=== PATIENT | female | born 1990 | race Caucasian/White ===

== ENCOUNTER 2016-11-09 19:13 | Emergency (ER) ==
[2016-11-09 19:34] LABS: MANUAL DIFF NEEDED? NO
[2016-11-09 19:36] LABS: BASO% 0.3 % (0.0-0.8); EOS# 0.37 X1000 (0.0-0.7); EOS% 3.3 % (0.0-10.0); HEMATOCRIT 37.2 % (37.0-47.0); IMM GRAN# 0.02 X1000 (0.0-0.04); IMM GRAN% 0.2 % (0.0-0.5); LYMPH# 3.41 X1000 (1.2-3.4); LYMPH% 30.1 % (20.5-51.1); MCH 24.6 PG (27-31); MCHC 32.3 g/dL (33-37); MCV 76.2 FL (81-99); MONO# 0.52 X1000 (0.11-0.59); MONO% 4.6 % (1.7-9.3); MPV 9.8 FL (7.4-10.4); NEUT% 61.5 % (42.2-75.2); PLT 449 X1000 (130-400); RBC 4.88 XMIL (4.2-5.4)
[2016-11-09 19:51] LABS: URINE CULTURE NEEDED? NO; URINE MICRO REVIEW NEEDED? NO; URINE SOURCE CLEAN CATCH
[2016-11-09 20:00] LABS: AGAP 14; ALBUMIN 3.9 g/dL (3.5-5.0); ALKALINE PHOSPHATASE 68 U/L (32-104); AMYLASE 36 U/L (20-200); BUN 10 mg/dL (8-22); CALCIUM 8.8 mg/dL (8.8-10.2); CHLORIDE 103 mmol/L (98-107); COSMO 274; GOT 12 U/L (10-30); GPT 14 U/L (10-36); LIPASE 29 U/L (13-60); SODIUM 138 mmol/L (136-145); TCO2 21 mmol/L (25-35); TOTAL BILIRUBIN < 0.10 mg/dL (0.20-1.00); TOTAL PROTEIN 7.1 g/dL (6.3-8.3)
[2016-11-09 20:11] LABS: BILIRUBIN URINE NEGATIVE (NEGATIVE); BLOOD URINE MODERATE (NEGATIVE); COLOR YELLOW; GLUCOSE URINE NEGATIVE (NEGATIVE); LEUKOCYTES URINE NEGATIVE (NEGATIVE); NITRITE URINE NEGATIVE (NEGATIVE); PROTEIN URINE NEGATIVE (NEGATIVE); TURBIDITY URINE CLEAR (CLEAR); UROBILINOGEN URINE NORMAL (NORMAL)
[2016-11-09 20:12] LABS: UR EPITHELIAL CELLS <10 /HPF (<10); URINE BACTERIA 1+ /HPF; URINE WBC <10 /HPF (<10)
[2016-11-09] MEDS ORDERED: ZOFRAN IV ONE (21:49)
[2016-11-09] MEDS ORDERED: MORPHINE IV ONE ×2 (21:49→22:57)
[2016-11-09] MEDS ORDERED: NS 1,000 ML IV ONE (21:49)
--- NOTE | 2016-11-09 21:50 | PROVIDER DOCUMENTATION ---
HPI-Abdominal Pain/GI Problem - General Chief Complaint: Abdominal Pain Stated Complaint: RT ABD PAIN, N/V/D Time Seen by Provider: 11/09/16 21:02 Source: patient Allergies/Adverse Reactions: Patient Allergies Allergy/AdvReac Type Severity Reaction Status Date / Time No Known Allergies Allergy Verified 11/09/16 21:40 Home Medications: Home Medication List Medication Instructions Recorded Confirmed Last Taken Type Levothyroxine [Synthroid] 25 microgm PO DAILY 12/24/15 11/09/16 11/09/16 08:00 History Noreth A-Et Estra/Fe Fumarate 1 each PO DAILY 12/24/15 11/09/16 11/09/16 08:00 History [Microgestin Fe 1-20 Tablet] Sertraline HCl [Zoloft] 100 mg PO DAILY 12/24/15 11/09/16 11/09/16 07:30 History Omeprazole [Prilosec] 40 mg PO DAILY 11/09/16 11/09/16 11/09/16 08:00 History Hydrocodone/APAP 7.5 mg/325 mg 1 each PO Q6H PRN PRN #10 tablet 11/10/16 Unknown Rx [Irene-7.5] Omeprazole [Prilosec] 20 mg PO DAILY@0700 #20 capsule 11/10/16 Unknown Rx Promethazine [Phenergan] 25 mg PO Q6H PRN PRN #20 tablet 11/10/16 Unknown Rx - History of Present Illness-ABD Nature of Presenting Problems: Pt is a 26 y/o F c chief complaint of epigastric pain, RUQ pain, and R scapula pain that was made worse when she ate a meal today. Pt has a h/o pancreatic duct stenosis and is being treated by a GI specialist in [place]. On arrival , pt is in minimal distress, afebrile. She denies dysuria or changes in bowel. Review of Systems - Adult - REVIEW OF SYSTEMS - ADULT Constitutional: reports: no symptoms reported. denies: chills, fatique Eyes: reports: no symptoms reported. denies: blurred vision, double vision Ears, Nose, Mouth & Throat: reports: no symptoms reported. denies: ear pain, nose pain Cardiovascular: reports: no symptoms reported. denies: chest pain, orthopnea Respiratory: reports: no symptoms reported. denies: cough, shortness of breath Gastrointestinal: reports: abdominal pain, nausea, vomiting Genitourinary: reports: no symptoms reported. denies: dysuria, flank pain Musculoskeletal: reports: no symptoms reported. denies: joint pain, joint swelling Integumentary: reports: no symptoms reported. denies: hives, itching, rash Neurological: reports: no symptoms reported. denies: numbness, paresthesia Psychiatric: reports: no symptoms reported. denies: anxiety, emotional problems Endocrine: reports: no symptoms reported. denies: cold intolerance, heat intolerance Hematologic/Lymphatic: reports: no symptoms reported. denies: blood clots, low blood count Allergic/Immunologic: reports: no symptoms reported. denies: allergic reactions , food allergy All Other Systems: Reviewed and Negative Past History - Adult - PAST MEDICAL HISTORY-ADULT Review of Records: reports: Old Records Reviewed, Nursing Assessment Review, Medications Reviewed, Social history reviewed & non-contributory. Major Childhood Illnesses: reports: denies history Cardiovascular: reports: denies history Respiratory: reports: denies history Gastrointestinal: reports: liver disease, pancreatitis Obstetrical/Gynecological: reports: denies history Genitourinary: reports: denies history Musculoskeletal: reports: denies history Neurological: reports: denies history Endocrine/Immune: reports: denies history Other Conditions: reports: denies history - PRIOR SURGERIES/PROCEDURES Surgical/Procedure History: reports: none - IMMUNIZATION STATUS Childhood Immunizations: See Nurse Assessment Flu Vaccine: See Nurse Assessment - FAMILY HISTORY Family History: reviewed, not pertinent - SOCIAL HISTORY Smoking: denies Substance Use: none/never Alcohol Use Frequency: never Living Situation: family Physical Exam-General - PHYSICAL EXAM-ADULT Initial Vital Signs Reviewed: Yes - CONSTITUTIONAL General Appearance: appears well, alert, no apparent distress - EYES Eyes: PERRL/EOMI, pink conjunctivae - HEAD, EARS, NOSE, MOUTH & THROAT HENMT: normocephalic/atraumatic, moist mucous membranes, normal ENT inspection - NECK Neck: non-tender - RESPIRATORY Respiratory: chest non-tender, lungs clear, normal breath sounds - CARDIOVASCULAR Cardiovascular: normal peripheral pulses, regular rate, rhythm, no edema - CHEST (BREASTS) Chest/Breast: deferred - GASTROINTESTINAL (ABDOMEN) Abdominal Exam: guarding, tenderness (RUQ), Handley's sign - LYMPHATIC Lymphatic: no adenopathy - MUSCULOSKELETAL Back Exam: normal inspection, no CVA tenderness, no vertebral tenderness Extremity: normal range of motion, non-tender, normal gait - SKIN Integumentary: normal color, normal turgor, warm/dry - NEUROLOGIC Neurologic: grossly normal, no motor/sensory deficits - PSYCHIATRIC Psych/Mental Status: normal mood/affect, normal thought content, normal thought process, oriented x 3 Progress - CT/MRI 1 CT Study: Abdomen, Pelvis Impression: Normal (Splenomegaly, normal GB appearance by CT, R colic distribution reactive lymph nodes of uncertain significance/etiology. follow up as clinically indicated. Tiny L and very small R pleural effusions. - prelim radiology report) Departure - Departure Time of Disposition Order: 01:11 DIAGNOSIS: Biliary colic Abdominal pain Qualifiers: Abdominal location: right upper quadrant Qualified Code(s): R10.11 - Right upper quadrant pain Disposition: HOME 01 Certified Medical Emergency: Emergent Condition: Stable Additional Instructions: FOLLOW UP WITH YOUR GI SPECIALIST IN [place]. FOLLOW UP WITH DR. ALY SMITH ( GENERAL SURGERY). ED Follow Up Instructions: You have been treated by a care provider in the Emergency Department. These instructions are being provided to you so you can have an understanding of how to care for yourself upon discharge. Upon discharge from the Emergency Department, you are responsible for making arrangements for follow-up care by a physician of your choice. Take all prescribed medications as directed. Return to the Emergency Department immediately for any new or worsening symptoms. You may call the Physician Referral phone number at [phone] to obtain a list of Physicians who are taking new patients. Prescriptions: Hydrocodone/APAP 7.5 mg/325 mg [Irene-7.5] 1 each PO Q6H PRN PRN #10 tablet PRN Reason: Pain Promethazine [Phenergan] 25 mg PO Q6H PRN PRN #20 tablet PRN Reason: Nausea Omeprazole [Prilosec] 20 mg PO DAILY@0700 #20 capsule Referrals: None,PCP [Primary Care Provider] - Attestation - Physician/ ASHLEE Attestation Patient care was provided by Advanced Practice Provider:: Yes Advanced Practice Provider:: Gio Haywood Advanced Practice Provider documentation review:: The Mid-level provider documentation, treatment plan and medical decision making was reviewed by the physician who agrees with all treatment and medical decision making by the [facility]. Physician Attestation - Physician Attestation I, the provider, attest to the following statement:: Gio Haywood Physician documentation Attestation:: This documentation recorded by the scribe accurately reflects the service I personally performed and the decisions made by me.
[2016-11-10 01:41] VITALS: BP 133/82
--- NOTE | 2016-11-10 09:37 | Diag Imaging Result Document ---
PROCEDURE NAME: CT ABD/PELVIS W/ IV CONT ONLY - 11/09/2016 CT ABDOMEN AND PELVIS WITH IV CONTRAST: COMPARISON: None available. FINDINGS: There are bilateral trace pleural effusions at the bases and minimal bibasilar atelectasis. The CT appearance of the gallbladder is normal. There are no surrounding inflammatory changes. The kidneys are unremarkable. The liver is essentially unremarkable. The appendix is normal. There are shotty mesenteric lymph nodes throughout the abdomen that are small. The most prominent are in the right lower quadrant. These are not necessarily pathologic. I suppose it could represent mild mesenteric adenitis. No focal inflammatory changes, free abdominal gas, or free fluid is identified. The remainder of the solid viscera of the abdomen and pelvis and the remainder of the GI tract is essentially unremarkable. IMPRESSION: 1. Trace bilateral pleural effusions and bibasilar atelectasis. 2. Normal-appearing gallbladder by CT. 3. Shotty nonspecific mesenteric lymph nodes as detailed above. 4. Other incidental/nonacute findings detailed above but no definite acute pathology.
== END 2016-11-10 01:41 | disposition home or self-care (01) ==
LOC: ED 19:13
DX: K80.50 Calculus of bile duct without cholangitis or cholecystitis without obstruction (principal); R10.11 Right upper quadrant pain; R10.13 Epigastric pain; R11.2 Nausea with vomiting, unspecified; Z79.899 Other long term (current) drug therapy
CPT/HCPCS: 74177; 80053; 81001; 81025; 82150; 83690; 85025; J2270; J2405; J7030; Q9967